=== PATIENT | female | born 1985 | race Caucasian/White ===

== ENCOUNTER 2016-08-10 08:49 | Emergency (ER) | payer MEDICARE ==
[2016-08-10 09:31] LABS: BASOPHILS 0.5 % (0.0-2.0); EOSINOPHILS 2.4 % (0-7); HEMATOCRIT 39.6 % (36.0-48.0); HEMOGLOBIN 13.4 g/dL (12-16); IMMATURE GRANULOCYTES 0.2 % (0-5); LYMPHOCYTES 31.8 % (15-50); MCH 29.7 pg (26.0-34.0); MCHC 33.8 g/dL (31.0-37.0); MCV 87.8 fL (80.0-100.0); MONOCYTES 8.4 % (2-11); NEUTROPHILS 56.7 % (40-80); PLATELET COUNT 389 10x3/uL (130-400); RBC 4.51 10x6/uL (4.00-5.40); RDW 12.6 % (11.5-14.5); WBC 5.7 10x3/uL (4.8-10.8)
[2016-08-10 09:43] LABS: ALBUMIN 3.8 g/dL (3.4-5.0); ANION GAP 15.3 mmol/L (8-16); BILIRUBIN - TOTAL 0.61 mg/dL (0.2-1.3); CALCIUM 9.3 mg/dL (8.5-10.1); CARBON DIOXIDE 22.6 mmol/L (21.0-32.0); CREATININE - SERUM 1.1 mg/dL (0.6-1.3); MAGNESIUM - SERUM 1.7 mg/dL (1.8-2.4); PROTEIN - SERUM 7.2 g/dL (6.4-8.2)
[2016-08-10 09:44] LABS: POTASSIUM - SERUM 2.9 mmol/L (3.5-5.1)
[2016-08-10 09:45] LABS: HCG URINE NEGATIVE (NEGATIVE)
[2016-08-10 09:46] LABS: APPEARANCE CLEAR (CLEAR); BILIRUBIN NEGATIVE (NEGATIVE); COLOR YELLOW (YELLOW); GLUCOSE NEGATIVE (NEGATIVE); KETONE NEGATIVE (NEGATIVE); LEUKOCYTE ESTERASE NEGATIVE (NEGATIVE); NITRITE NEGATIVE (NEGATIVE); PROTEIN NEGATIVE (NEGATIVE); UROBILINOGEN NORMAL (NORMAL)
[2016-08-10 09:48] LABS: BACTERIA FEW /hpf (NONE SEEN); EPITHELIAL CELLS 0-5 /hpf (0-5); WHITE CELLS - URINE 0-5 /hpf (0-5)
[2016-08-10 09:59] LABS: UDS - AMPHET NEGATIVE QUAL (NEGATIVE); UDS - BARB NEGATIVE QUAL (NEGATIVE); UDS - BENZO NEGATIVE QUAL (NEGATIVE); UDS - COCAINE NEGATIVE QUAL (NEGATIVE); UDS - METH NEGATIVE QUAL (NEGATIVE); UDS - OPIATE NEGATIVE QUAL (NEGATIVE); UDS - PCP NEGATIVE QUAL (NEGATIVE); UDS - THC NEGATIVE QUAL (NEGATIVE)
[2016-10-10 11:10] VITALS: BMI 54.7
== END 2016-08-10 10:54 | disposition home or self-care (01) ==
LOC: D.ER 08:49
PROVIDERS: Emergency Medicine
DX: R00.2 Palpitations (principal); E87.6 Hypokalemia; E83.42 Hypomagnesemia; F41.9 Anxiety disorder, unspecified

== ENCOUNTER 2016-08-11 01:25 | Emergency (ER) | payer MEDICARE ==
[2016-10-10 11:10] VITALS: BMI 54.7
== END 2016-08-11 02:31 | disposition home or self-care (01) ==
LOC: D.ER 01:25
DX: F41.9 Anxiety disorder, unspecified (principal); G47.00 Insomnia, unspecified; E87.6 Hypokalemia; E83.42 Hypomagnesemia

== ENCOUNTER 2016-10-10 10:27 | Outpatient (CLI) | payer MEDICARE ==
[~2016-10-10] VITALS: Ht 167.6 cm; Wt 127.3 kg
--- NOTE | ~2016-10-10 | HEMODYNAMI ---
PATIENT:WILBERT PHILLIP MEDICAL RECORD: [id number] : 83 LOCATION:[facility] ADMISSION DATE: 10/10/16 Generatedon:10/10/201613:23 Patient name: WILBERT PHILLIP Patient #: [id number] SSN: D OB: 1985 Date of study: 10/10/2016 Page: Of Hemodynamic Procedure Report Patient Data Patient Demographics Procedure consent was obtained First Name: WILBERT Gender: Female Last Name: MARJAN : 1985 Middle Initial: ANA Age: 30 year(s) Patient #: [id number] Race: Additional ID: [id number] Contact details Address: [address] [place] [address] [address] State: [place] City: [facility] Zip code: [address] Past Medical History Allergies Allergen Reaction Date Comments Reported Other allergy 10/10/2016 augmentin,Cymbalta, Propranolol Admission Admission Data Admission Date: 10/10/2016 Admission Time: 10:27 Admit Source: Other Insurance Payor: Medicare, Medicaid Height (in.): 66 BSA: 2.29 (m2) Height (cm.): 167.64 BMI: 44.55 (kg/m2) Weight (lbs.): 276 Weight (kg.): 125.19 Lab Results Lab Result Date: 10/10/2016 Lab Result Time: 11:00 Biochemistry Name Units Result Min Max BUN mg/dl 6 -*(----)-- 7 18 Creatinine mg/dl 0.9 --(-*--)-- 0.6 1.3 CBC Name Units Result Min Max Hematocrit % 40.2 -*(----)-- 42 54 Hemoglobin g/dl 13 -*(----)-- 13.5 17.5 Procedure Procedure Types Cath Procedure Diagnostic Procedure LHC LHC w/Coronaries Miscellaneous Procedures Moderate Sedation up to 15 minutes Procedure Description Procedure Date Procedure Date: 10/10/2016 Procedure Start Time: 13:06 Procedure End Time: 13:17 Procedure Staff Name Function Candelario Jimenez MD Performing Physician Mikki Dickinson RT Scrub Neo Poole RN Nurse Quan Reynolds RT Monitor Procedure Data Cath Procedure Fluoroscopy Diagnostic fluoroscopy Total fluoroscopy Time: 2.4 time: 2.4 min min Diagnostic fluoroscopy Total fluoroscopy dose: 601 dose: 601 mGy mGy Contrast Material Contrast Material Type Amount (ml) Isovue 300 82 Entry Location Entry Primary Successful Side Size Upsize Upsize Entry Closure Succes sful Closure Location (Fr) 1 (Fr) 2 (Fr) Remarks Device Remarks Femoral Right 5 Fr Exoseal artery Estimated blood loss: 5 ml Diagnostic catheters Device Type Used For End Catheter Placement Cordis 5Fr JL 4.0 Procedure Catheter (MP) Diagnostic Infinity 5Fr Procedure JL 3.5 catheter Cordis 5Fr Pigtail Procedure Catheter (MP) Cordis 5Fr 3DRC Catheter Procedure (MP) Procedure Complications No complications Procedure Medications Medication Administration Route Dosage Oxygen NC 2 l/min Heparin Flush Bag added to field 2 bags (1000units/500ml NS) 0.9% NaCl I.V. 100 ml/hr Fentanyl I.V. 100 mcg Versed I.V. 2 mg Fentanyl I.V. 100 mcg Versed I.V. 2 mg Fentanyl I.V. 100 mcg Versed I.V. 2 mg Fentanyl I.V. 50 mcg Versed I.V. 1 mg Fentanyl I.V. 50 mcg Versed I.V. 1 mg Hemodynamics Rest BSA: 2.29 (m2) HGB: 13 (g/dl) O2 Consumption: Estimated: 262.48 (ml/min) O2 Cons umption indexed: Estimated:114.62 (ml/min/m) Heart Rate: 93 (bpm) Pressure Samples Time Site Value (mmHg) Purpose Heart Use Rate(bpm) 13:12 LV 105/25,25 Snapshot 94 13:12 LV 105/25,25 Snapshot 93 Gradients Valve Time Site Site Mean SEP/DFP Peak To Heart Use 1 2 (mmHg) (sec/min) Peak Rate (mmHg) (bpm) Aortic 13:13 LV AO 96 Snapshots Pre Cath Intra NCS Post Cath Vital Signs Time Heart Resp SPO2 NIBP Rhythm Pain Sedation Rate (ipm) (%) (mmHg) Status Level (bpm) 12:49:48 92 20 96 122/79(99) NSR 0 (11) 10(A) , No pain 12:54:00 95 20 97 113/80(99) NSR 0 (11) 10(A) , No pain 12:58:12 99 20 98 116/77(94) NSR 0 (11) 10(A) , No pain 13:02:24 94 18 98 116/76(93) NSR 0 (11) 10(A) , No pain 13:06:34 98 17 96 114/78(89) NSR 0 (11) 10(A) , No pain 13:10:46 102 18 97 113/74(87) NSR 0 (11) 9(A) , No pain 13:15:00 102 17 96 111/72(85) NSR 0 (11) 9(A) , No pain 13:22:26 104 17 96 113/77(92) NSR 0 (11) 9(A) , No pain Medications Time Medication Route Dose Verified Delivered Reason Notes Effec tiveness by by 12:49:23 Oxygen NC 2 Neo Neo Per l/min Virgilio Poole RN physician RN 12:49:31 Heparin Flush added 2 Neo Neo used for Bag to bags Virgilio Poole RN procedure (1000units/500ml field RN NS) 12:49:43 0.9% NaCl I.V. 100 Neo Neo Per ml/hr Virgilio Poole RN physician RN 13:02:11 Fentanyl I.V. 100 Neo Neo for abi Poole RN sedation RN 13:02:18 Versed I.V. 2 mg Neo Neo for Virgilio Poole RN sedation RN 13:05:27 Fentanyl I.V. 100 Neo Neo [place] [facility] [place] Virgilio Poole RN sedation RN 13:05:30 Versed I.V. 2 mg Neo Neo for Virgilio Poole RN sedation RN 13:06:35 Fentanyl I.V. 100 Neo Neo for abi Poole RN sedation RN 13:06:39 Versed I.V. 2 mg Neo Neo for Virgilio Poole RN sedation RN 13:08:27 Fentanyl I.V. 50 Neo Neo for [facility] [place] Virgilio Poole RN sedation RN 13:08:38 Versed I.V. 1 mg Neo Neo for Virgilio Poole RN sedation RN 13:10:39 Fentanyl I.V. 50 Neo Larson for [facility] [place] Virgilio Poole RN sedation RN 13:10:41 Versed I.V. 1 mg Neo Larson for Virgilio Poole RN sedation tape coater Log Time Note 12:23:37 Neo Poole RN sent for patient. Start room use. 12:33:11 Informed consent obtained and on chart 12:33:33 ACC Patient presents with Stable Angina CCS Anginal Class 2--Slight limitation of ordinary activity. 12:33:35 Diagnostic Cath status Elective 12:33:38 Time tracking: Regular hours 12:33:41 Plan of Care:Hemodynamics will remain stable., Cardiac rhythm will remain stable., Comfort level will be maintained., Respiratory function will remain adequate., Patient/ family verbilizes understanding of procedure., Procedure tolerated without complication., Recovers from procedure without complications.. 12:35:14 H&P Date Dictated: 09/12/2016 Within 30 days and on chart., H&P Addendum completed by physician on day of procedure. (MUST COMPLETE FOR ALL OUTPATIENTS). 12:36:31 Patient allergic to Other allergyaugmentin,Cymbalta, Propranolol 12:36:36 Admit Source: Other 12:36:47 Patient Height : 167.64 cm 12:36:59 Patient Weight : 125.19 kg 12:36:59 Insurance Payor : Medicare, Medicaid 12:37:56 Lab Result : Hemoglobin 13 g/dl 12:37:56 Lab Result : Hematocrit 40.2 % 12:37:56 Lab Result : BUN 6 mg/dl 12:37:56 Lab Result : Creatinine 0.9 mg/dl 12:38:09 Lab results completed and on chart. 12:38:31 HCG/Urine : completed and on chart, negative 12:44:18 Patient received from Pre/Post Procedure Room to [facility] 2 Alert and oriented. Tansferred to table in Supine position. 12:44:19 Warm blankets applied, and esa hugger turned on for patient comfort. 12:44:19 Correct patient and procedure confirmed by team. 12:44:20 ECG and BP/O2 sat monitors applied to patient. 12:44:21 Full Disclosure recording started 12:48:42 Vital chart was started 12:49:23 Oxygen 2 l/min NC was administered by Neo Poole RN; Per physician; 12:49:31 Heparin Flush Bag (1000units/500ml NS) 2 bags added to field was administered by Neo Poole RN; used for procedure; 12:49:43 0.9% NaCl 100 ml/hr I.V. was administered by Neo Poole RN; Per physician; 12:55:53 Baseline sample Acquired. 12:55:59 Rhythm: sinus rhythm 12:56:04 Pre-procedure instructions explained to patient. 12:56:34 Pre-op teaching completed and patient verbalized understanding. 12:56:39 Family in waiting room. 12:56:40 Patient NPO since Midnight. 12:56:42 Is the patient allergic to Iodine/contrast media? No. 12:56:44 Is patient on blood thinner?No 12:56:47 Patient diabetic? No. 12:56:51 Previous problem with sedation/anesthesia? No ? 12:56:52 Snore? Yes 12:56:53 Sleep apnea? No 12:56:54 Deviated septum? No 12:56:55 Opens mouth fully? Yes 12:56:56 Sticks out tongue? Yes 12:56:57 Airway obstruction? No ? 12:56:59 Dentures? No ? 12:57:04 Pre procedure: right dorsailis pedis pulse 2+ Normal; easily identifiable; not easily obliterated 12:57:07 Patient pain scale 0/10 ?. 12:57:12 IV patent on arrival in left hand with 0.9% NaCl at O. 12:57:18 Right groin area was prepped with chlora-prep and draped in sterile fashion 12:57:19 Alarms reviewed by R. N. 12:57:19 Sharps counted by scrub and verified by R.N. 12:57:21 Use device set Femoral Dx 12:57:23 Tegaderm 4 x 4 opened to sterile field. 12:57:24 Acist Manifold opened to sterile field. 12:57:24 Acist Hand Control opened to sterile field. 12:57:25 Acist Syringe opened to sterile field. 12:57:26 Bag Decanter opened to sterile field. 12:57:27 Medline Cath Pack opened to sterile field. 12:57:28 Terumo 5Fr Coin Sheath opened to sterile field. 12:57:28 St Ari 260cm J .035 wire opened to sterile field. 12:57:29 Diagnostic Infinity 5Fr Multipack catheter opened to sterile field. 13::44 Physician arrived 13::44 --------ALL STOP TIME OUT------ 13:01:45 Final Timeout: patient, procedure, and site verified with staff and physician. All members of the team are in agreement. 13:01:47 Right groin site verified by team. 13:01:56 Physical assessment completed. ASA score P 2 - A patient with mild systemic disease as per Candelario Jimenez MD. 13:02:00 Sedation plan: IV Moderate Sedation Versed, Fentanyl 13:02:11 Fentanyl 100 mcg I.V. was administered by Neo Poole RN; for sedation; 13:02:18 Versed 2 mg I.V. was administered by Neo Poole RN; for sedation; 13:05:27 Fentanyl 100 mcg I.V. was administered by Neo Poole RN; for sedation; 13:05:30 Versed 2 mg I.V. was administered by Neo Poole RN; for sedation; 13:06:32 Zero performed for pressure channel P1 13:06:35 Fentanyl 100 mcg I.V. was administered by Neo Poole RN; for sedation; 13:06:38 Zero performed for pressure channel P1 13:06:39 Versed 2 mg I.V. was administered by Neo Poole RN; for sedation; 13:06:55 Procedure started. 13:06:57 Local anesthetic to right femoral artery with Lidocaine 2% by Candelario Jimenez MD.INITIAL ACCESS ONLY 13:07:06 A 5 Fr sheath was inserted into the Right Femoral artery 13:07:44 A Cordis 5Fr JL 4.0 Catheter () was advanced over the wire and used for Procedure. 13:08:02 LCA angiography performed. 13:08:27 Fentanyl 50 mcg I.V. was administered by Neo Poole RN; for sedation; 13:08:38 Versed 1 mg I.V. was administered by Neo oPole RN; for sedation; 13:09:28 Catheter removed. 13:09:51 A Diagnostic Infinity 5Fr JL 3.5 catheter was advanced over the wire and used for Procedure. 13:10:39 Fentanyl 50 mcg I.V. was administered by Neo Poole RN; for sedation; 13:10:41 Versed 1 mg I.V. was administered by Neo Poole RN; for sedation; 13:11:14 LCA angiography performed. 13:11:15 Catheter removed. 13:12:12 A Cordis 5Fr Pigtail Catheter (MP) was advanced over the wire and used for Procedure. 13:12:16 LV hemodynamics recorded. 13:12:49 LV gram done using LUNA 13:12:51 Injector settings: Ml/sec: 5, Volume: 15, 13:12:58 EF : 55 % 13:13:10 Catheter removed. 13:13:18 A Cordis 5Fr 3DRC Catheter (MP) was advanced over the wire and used for Procedure. 13:14:13 RCA angiography performed. 13:14:16 ACCDominant side:Left 13:14:20 Catheter removed. 13:14:29 Cordis 5Fr Exoseal opened to sterile field. 13:14:40 Sheath removed intact; hemostasis achieved with Exoseal to the Right Femoral artery. 13:14:42 Procedure ended.(Physican Out) 13:15:21 Fluoroscopy time 02.40 minutes. 13:15:25 Flurop Dose total: 601 13:15:26 Fluoroscopy dose: 601 mGy 13:15:56 Contrast amount:Isovue 300 82ml. 13:15:57 Sharps counted by scrub and verified by R.N. 13:15:58 Insertion/operative site no bleeding no hematoma. 13:16:01 Post-op/insertion site Right Femoral artery dressed using a 4 x 4 and Tegaderm. 13:16:06 Post right femoral artery:stable, soft, clean and dry 13:16:29 Post Procedure Pulses reassessed and unchanged 13:16:33 Post-procedure physical assessment completed. ASA score P 2 - A patient with mild systemic disease as per Candelario Jimenez MD. 13:16:58 Post procedure rhythm: unchanged. 13:17:00 Estimated blood loss: 5 ml 13:17:01 Post procedure instruction explained to patient.Patient verbalizes understanding. 13:17:02 Patient needs reinforcement of post procedure teaching. 13:17:13 Procedure type changed to Cath procedure, Diagnostic procedure, LHC, LHC w/Coronaries, Miscellaneous Procedures, Moderate Sedation up to 15 minutes 13:17:44 Procedure and supply charges have been captured, reviewed, submitted and are correct. 13:17:46 Procedure Complication : No complications 13:17:49 Vital chart was stopped 13:17:50 See physician's report for complete and final results. 13:17:51 Report given to Pre/Post Procedure Room. 13:17:54 Patient transfered to Pre/Post Procedure Room with Stretcher. 13:17:56 Procedure ended. 13:17:56 Full Disclosure recording stopped 13:19:32 End room use (Document Last) Device Usage Item Name Manufacture Quantity Catalog Hospital Part Current Minimal Lo t# / Number Charge Number Stock Stock Serial# Code Tegaderm 4 3M 1 1626W 606300 [id number] 901592 5 x 4 Acist Acist 1 84618 229424 757615 125783 5 Manifold Medical Systems Location Acist Hand Acist 1 65789 964753 213912 480211 5 Control Medical Systems Inc Acist Acist 1 98063 403585 302916 764609 20 Syringe Medical Systems Inc Bag Microtek 1 2002S 246961 84144 100309 5 [employer]. Medline Cardinal 1 [id number] 817024 01325 555621 5 Cath Pack Health Terumo 5Fr Terumo 1 [id number] 727109 106439 351196 [address] Ari 1 408275 365229 442425 389726 30 260cm J .035 wire Diagnostic Cardinal 1 [id number] 093707 32955 957915 30 Infinity Health 5Fr Multipack catheter Cordis 5Fr Cardinal 1 830477 5 JL 4.0 Health Catheter (MP) Diagnostic Cardinal 1 [id number] 102835 907527 259383 5 Infinity Health 5Fr JL 3.5 catheter Cordis 5Fr Cardinal 1 313425 5 Pigtail Health Catheter (MP) Cordis 5Fr Cardinal 1 634615 5 3DRC Health Catheter (MP) Cordis 5Fr Cardinal 1 EX500 940091 135705 126003 10 [employer] Signature Audit Franklin Stage Time Signature Unsigned Intra-Procedure 10/10/2016 Quan Reynolds 1:23:20 PM RT(R) Signatures Monitor : Quan Reynolds RT Signature : Date : Time : [place] [address] [place] [address]
[2016-10-10 11:10] VITALS: BP 115/80; Ht 167.6 cm; Wt 127.3 kg
[2016-10-10] MEDS ORDERED: LATUDA40 MG PO (11:25)
[2016-10-10] MEDS ORDERED: ZOLOFT100 MG PO (11:25)
[2016-10-10] MEDS ORDERED: ELAVIL75 MG PO (11:25)
[2016-10-10 11:42] LABS: BASOPHILS 0.7 % (0.0-2.0); EOSINOPHILS 2.9 % (0-7); HEMATOCRIT 40.2 % (36.0-48.0); IMMATURE GRANULOCYTES 0.2 % (0-5); LYMPHOCYTES 36.4 % (15-50); MCHC 32.3 g/dL (31.0-37.0); MCV 92.8 fL (80.0-100.0); MEAN PLATELET VOLUME 8.7 fL (7.4-10.4); MONOCYTES 12.4 % (2-11); NEUTROPHILS 47.4 % (40-80); PLATELET COUNT 342 10x3/uL (130-400); RBC 4.33 10x6/uL (4.00-5.40); WBC 4.2 10x3/uL (4.8-10.8)
[2016-10-10 11:52] LABS: CALC OSMOLALITY 277 mosm/kg (275-300); CALCIUM 8.2 mg/dL (8.5-10.1); CARBON DIOXIDE 26.9 mmol/L (21.0-32.0); CHLORIDE - SERUM 106 mmol/L (98-107); CREATININE - SERUM 0.9 mg/dL (0.6-1.3); GLUCOSE 87 mg/dL (74-106); POTASSIUM - SERUM 3.6 mmol/L (3.5-5.1); SODIUM 141 mmol/L (136-145); UREA NITROGEN 6 mg/dL (7-18); eGFR NON AFRICAN AMERICAN 77 mL/min (90-120)
[2016-10-10 11:53] LABS: HCG SERUM NEGATIVE (NEGATIVE)
--- NOTE | 2016-10-10 14:30 | NUR ---
1350 LYING FLAT, ROOM AIR WITH NO RESP DISTRESS. NSR RATE 86 W NO C/O CHEST PAIN. PULSES PALP X 4. R GROIN 5F EXOSEAL C/D/I WITH NO HEMATOMA OR BLEEDING.
--- NOTE | 2016-10-10 15:07 | NUR ---
HOB ELEVATED 30 DEGREES. LEFT HAND PIV D/C'D WITH CATHETER INTACT. BAND AID TO SITE.
--- NOTE | 2016-10-10 15:21 | NUR ---
UP TO BEDSIDE TO DRESS, AMBULATED TO BATHROOM TO VOID. R GROIN REMAINS C/D/I WITH NO HEMATOMA OR BLEEDING. D/C INSTRUCTIONS DISCUSSED WITH PATIENT AND FAMILY AT BEDSIDE.
--- NOTE | 2016-10-10 15:36 | NUR ---
WHEELED OUT VIA WHEELCHAIR BY CATH STAFF.
--- NOTE | 2016-10-13 09:45 | OP ---
PATIENT NAME: WILBERT PHILLIP MEDICAL RECORD: [id number] :83 LOCATION:D.CAT ADMISSION DATE: SURGEON: OLAYINKA DOWD MD DATE OF OPERATION: 10/10/2016 PROCEDURE: Left heart catheterization, selective coronary angiography, and right femoral artery approach. CATHETERS: A 5-Mauritanian sheath, 5/4 left and right Tucker, 5/4 pig. The procedure was well tolerated and the patient returned to the casas. Sheath removed. ExoSeal device placed. FINDINGS: Left ventriculography in 30-degree LUNA view: Normal wall motion and normal systolic function. CORONARY ANATOMY: Left main: Left main is free of disease. LAD: Free of disease in the diagonal system. CIRCUMFLEX: Free of disease in the marginal system. RIGHT CORONARY ARTERY: Dominant artery, gives rise to PDA, free of disease. IMPRESSION: Normal systolic function. Normal coronary anatomy. TRANSINT:[id number] Voice Confirmation ID: [id number] DOCUMENT ID: [id number] OLAYINKA DOWD MD at 0945 CC: [id number] DICTATION DATE: 10/10/16 1319 PLANT TECHNICAL SPECIALIST: 10/10/16 2223 DEP CLI 10/10/16 [place] [id number] [place] [address]
== END 2016-10-10 15:37 | disposition home or self-care (01) ==
LOC: D.CATH 10:27
PROVIDERS: Internal Medicine Interventional Cardiology
DX: I20.9 Angina pectoris, unspecified (principal); R06.02 Shortness of breath; R94.30 Abnormal result of cardiovascular function study, unspecified; F41.9 Anxiety disorder, unspecified; R00.2 Palpitations

== ENCOUNTER 2016-11-09 14:46 | Emergency (ER) | payer MEDICARE ==
[2016-10-10 11:10] VITALS: BMI 54.7
[~2016-11-09 14:46] MED LIST: ELAVIL75 MG PO; LATUDA40 MG PO; ZOLOFT100 MG PO
[2016-11-09 15:56] LABS: BASOPHILS 0.1 % (0.0-2.0); EOSINOPHILS 0.3 % (0-7); HEMOGLOBIN 13.1 g/dL (12-16); IMMATURE GRANULOCYTES 0.2 % (0-5); LYMPHOCYTES 9.9 % (15-50); MCH 30.4 pg (26.0-34.0); MCHC 33.6 g/dL (31.0-37.0); MCV 90.5 fL (80.0-100.0); MEAN PLATELET VOLUME 8.9 fL (7.4-10.4); MONOCYTES 4.7 % (2-11); NEUTROPHILS 84.8 % (40-80); PLATELET COUNT 355 10x3/uL (130-400); RBC 4.31 10x6/uL (4.00-5.40); RDW 12.6 % (11.5-14.5)
[2016-11-09 16:10] LABS: ALBUMIN 3.5 g/dL (3.4-5.0); ALKALINE PHOSPHATASE 46 U/L (46-116); ALT (SGPT) 19 U/L (10-68); BILIRUBIN - TOTAL 0.29 mg/dL (0.2-1.3); CALC OSMOLALITY 278 mosm/kg (275-300); CALCIUM 8.3 mg/dL (8.5-10.1); CARBON DIOXIDE 22.6 mmol/L (21.0-32.0); CHLORIDE - SERUM 106 mmol/L (98-107); CREATININE - SERUM 0.9 mg/dL (0.6-1.3); GLUCOSE 102 mg/dL (74-106); POTASSIUM - SERUM 3.6 mmol/L (3.5-5.1); PROTEIN - SERUM 7.3 g/dL (6.4-8.2); SODIUM 141 mmol/L (136-145); UREA NITROGEN 8 mg/dL (7-18); eGFR NON AFRICAN AMERICAN 77 mL/min (90-120)
== END 2016-11-09 17:19 | disposition home or self-care (01) ==
LOC: D.ER 14:46
PROVIDERS: Emergency Medicine
DX: J02.9 Acute pharyngitis, unspecified (principal); F41.9 Anxiety disorder, unspecified; E87.6 Hypokalemia; E83.42 Hypomagnesemia; G47.00 Insomnia, unspecified

== ENCOUNTER 2017-10-11 00:54 | Emergency (ER) | payer MEDICARE ==
[2016-10-10 11:10] VITALS: BMI 54.7
[2017-10-11 01:31] LABS: BASOPHILS 0.6 % (0-2); EOSINOPHILS 1.9 % (0-7); HEMATOCRIT 37.6 % (36.0-48.0); HEMOGLOBIN 12.6 g/dL (12-16); IMMATURE GRANULOCYTES 0.1 % (0-5); LYMPHOCYTES 28.4 % (15-50); MCH 30.1 pg (26.0-34.0); MCHC 33.5 g/dL (31.0-37.0); MEAN PLATELET VOLUME 9.1 fL (7.4-10.4); MONOCYTES 6.5 % (2-11); NEUTROPHILS 62.5 % (40-80); PLATELET COUNT 354 10x3/uL (130-400); RBC 4.18 10x6/uL (4.00-5.40); RDW 12.2 % (11.5-14.5); WBC 6.8 10x3/uL (4.8-10.8)
[2017-10-11 01:41] LABS: HCG SERUM NEGATIVE (NEGATIVE)
[2017-10-11 01:48] LABS: ALBUMIN 3.3 g/dL (3.4-5.0); ANION GAP 14.9 mmol/L (8-16); BILIRUBIN - TOTAL 0.38 mg/dL (0.2-1.3); CALCIUM 8.9 mg/dL (8.5-10.1); CARBON DIOXIDE 20.9 mmol/L (21.0-32.0); CREATININE - SERUM 1.3 mg/dL (0.6-1.3)
[2017-10-11 01:55] LABS: POTASSIUM - SERUM 2.8 mmol/L (3.5-5.1)
[2017-10-11 02:09] LABS: APPEARANCE CLEAR (CLEAR); BILIRUBIN NEGATIVE (NEGATIVE); COLOR YELLOW (YELLOW); GLUCOSE NEGATIVE (NEGATIVE); KETONE NEGATIVE (NEGATIVE); NITRITE NEGATIVE (NEGATIVE); PROTEIN NEGATIVE (NEGATIVE); SPECIFIC GRAVITY 1.005 (1.005-1.020); UROBILINOGEN NORMAL (NORMAL)
== END 2017-10-11 05:15 | disposition home or self-care (01) ==
LOC: D.ER 00:54
PROVIDERS: Family Medicine
DX: R10.9 Unspecified abdominal pain (principal); E87.6 Hypokalemia

== ENCOUNTER 2017-11-22 02:23 | Emergency (ER) | payer MEDICARE ==
[2016-10-10 11:10] VITALS: BMI 54.7
[2017-11-22 03:07] LABS: ALBUMIN 3.2 g/dL (3.4-5.0); ANION GAP 14.5 mmol/L (8-16); BILIRUBIN - TOTAL 0.47 mg/dL (0.2-1.3); CALCIUM 8.5 mg/dL (8.5-10.1); CARBON DIOXIDE 22.7 mmol/L (21.0-32.0); CREATININE - SERUM 1.1 mg/dL (0.6-1.3); POTASSIUM - SERUM 3.2 mmol/L (3.5-5.1); PROTEIN - SERUM 6.8 g/dL (6.4-8.2)
[2017-11-22 03:10] LABS: APPEARANCE CLEAR (CLEAR); BILIRUBIN NEGATIVE (NEGATIVE); COLOR YELLOW (YELLOW); GLUCOSE NEGATIVE (NEGATIVE); KETONE NEGATIVE (NEGATIVE); NITRITE NEGATIVE (NEGATIVE); PROTEIN NEGATIVE (NEGATIVE); SPECIFIC GRAVITY 1.015 (1.005-1.020); UROBILINOGEN NORMAL (NORMAL)
[2017-11-22 03:11] LABS: BASOPHILS 0.5 % (0-2); EOSINOPHILS 1.7 % (0-7); HEMATOCRIT 36.3 % (36.0-48.0); HEMOGLOBIN 12.5 g/dL (12-16); IMMATURE GRANULOCYTES 0.2 % (0-5); LYMPHOCYTES 34.1 % (15-50); MCH 30.6 pg (26.0-34.0); MCHC 34.4 g/dL (31.0-37.0); MEAN PLATELET VOLUME 9.4 fL (7.4-10.4); MONOCYTES 6.7 % (2-11); NEUTROPHILS 56.8 % (40-80); PLATELET COUNT 311 10x3/uL (130-400); RBC 4.08 10x6/uL (4.00-5.40); RDW 12.4 % (11.5-14.5)
== END 2017-11-22 04:05 | disposition home or self-care (01) ==
LOC: D.ER 02:23
PROVIDERS: Emergency Medicine
DX: R06.00 Dyspnea, unspecified (principal); J44.1 Chronic obstructive pulmonary disease with (acute) exacerbation; J18.9 Pneumonia, unspecified organism; F17.200 Nicotine dependence, unspecified, uncomplicated

== ENCOUNTER → 2017-11-22 06:55 | Outpatient (CLI) | payer MEDICARE ==
[2016-10-10 11:10] VITALS: BMI 54.7
[2017-11-22 08:25] LABS: ALBUMIN 3.3 g/dL (3.4-5.0); BILIRUBIN - DIRECT 0.22 mg/dL (0.00-0.30); BILIRUBIN - INDIRECT 0.23 mg/dL (0.00-1.00); BILIRUBIN - TOTAL 0.45 mg/dL (0.2-1.3); PROTEIN - SERUM 6.5 g/dL (6.4-8.2)
== END | disposition home or self-care (01) ==
LOC: D.US 06:55 → D.NM 08:30
PROVIDERS: Internal Medicine Gastroenterology
DX: R63.4 Abnormal weight loss (principal); R10.9 Unspecified abdominal pain

== ENCOUNTER 2017-12-27 07:30 | Day surgery (SDC) | payer MEDICARE ==
[2017-12-26 10:13] LABS: HEMATOCRIT 38.4 % (36.0-48.0); HEMOGLOBIN 13.1 g/dL (12-16); MCHC 34.1 g/dL (31.0-37.0); MCV 90.8 fL (80.0-100.0); MEAN PLATELET VOLUME 9.3 fL (7.4-10.4); RBC 4.23 10x6/uL (4.00-5.40); RDW 12.5 % (11.5-14.5); WBC 5.2 10x3/uL (4.8-10.8)
[~2017-12-27] VITALS: Ht 170.2 cm; Wt 113.4 kg
--- NOTE | ~2017-12-27 | OP ---
PATIENT NAME: WILBERT PHILLIP MEDICAL RECORD: [id number] :[birth year] LOCATION:D.OPS ADMISSION DATE: SURGEON: CONSUELO ALMODOVAR MD DATE OF OPERATION: 12/27/2017 PREOPERATIVE DIAGNOSES: 1. Chronic cholecystitis. 2. Akinetic gallbladder. POSTOPERATIVE DIAGNOSES: 1. Chronic cholecystitis. 2. Akinetic gallbladder with hepatomegaly. PROCEDURE: 1. Laparoscopic cholecystectomy. 2. Intraoperative cholangiography without immediate surgeon interpretation. 3. 14-gauge core needle liver biopsies. SURGEON: Consuelo Almodovar MD TIME LOCK EXPERT: Candice Kemp APRN COMPLICATIONS: None. OPERATIVE COURSE: The patient was conveyed to the operating room electively on 12/27/2017. General anesthesia was induced by the anesthesia staff. The abdomen was sterilely prepped and draped. A small skin callum was accomplished in the left upper quadrant. A Veress needle was inserted through the skin callum into the peritoneal cavity. CO2 insufflation was begun. Once a sufficient pneumoperitoneum had been achieved, a 5-mm trocar was inserted through an incision in the right upper quadrant. Under direct internal vision utilizing a television camera, a 12-mm trocar was inserted through an incision at the umbilicus. Two more trocars were inserted. A 5-mm trocar was inserted in the epigastrium. Another 5-mm trocar was inserted far laterally in the right upper quadrant. During insertion of the Veress needle and all trocars, there appeared to have been no injury to the bowels, any intraperitoneal or retroperitoneal structures. The indication for the liver biopsy was hepatomegaly. Under laparoscopic guidance, I percutaneously accessed the right upper quadrant utilizing an 14-gauge core needle liver biopsy device. Cores were obtained over the convexity of the liver. The biopsy sites were made hemostatic with electrocautery. I then advanced the cholangiogram trocar. I punctured the fundus of the gallbladder. I aspirated bile. I then injected dye. Static fluoroscopic images were obtained. These cholangiographic images are sent to the radiologist for interpretation. I withdrew the cholangiogram trocar. The gallbladder was grasped and retracted cephalad. The infundibulum was grasped and retracted laterally. Critical view of the triangle of Calot was visualized. Blunt dissection was begun on the triangle of Calot. One cystic artery and one cystic duct were identified. These were clipped multiply and divided between clips. The gallbladder was then excised from its bed and the liver. It was placed within an Endobag retrieval device and was withdrawn through the umbilical OPERATIVE REPORT [id number] EVE PHILLIPAH ANA fascia defect. The 12-mm trocars were placed and the abdomen reinsufflated. I irrigated and aspirated in the right upper quadrant. There was no bleeding even at low pressure of 8. The Deniz-Leonie suture closure device and 0 Vicryl sutures were used to close the umbilical fascia. All the trocars were removed and the abdomen desufflated. The incision at the umbilicus was closed with interrupted 4-0 Vicryl Rapide sutures. The other skin incisions were closed with interrupted intracuticular 3-0 Vicryls. Benzoin and Steri-Strips were applied. The patient was then extubated and conveyed to post-anesthesia care unit where she was in stable condition. TRANSINT:[id number] Voice Confirmation ID: [id number] DOCUMENT ID: [id number] CONSUELO ALMODOVAR MD at 1126 CC: JOVANA BAEZ MD and AP PACK [id number] DICTATION DATE: 12/27/17 1209 HACKLER DOLL WIGS: 12/27/17 1234 [facility] 12/27/17 [address] [place] [address]
[2017-12-27 08:20] VITALS: BP 101/64; Ht 170.2 cm; Wt 113.4 kg
[2017-12-27 08:34] LABS: HCG URINE NEGATIVE (NEGATIVE)
== END 2017-12-27 17:45 ==
LOC: D.OPS 07:30 → D.PAN 09:30 → D.OPS 17:45
PROVIDERS: Anesthesiology; Surgery
DX: K81.1 Chronic cholecystitis (principal); Z01.812 Encounter for preprocedural laboratory examination

== ENCOUNTER 2018-05-03 16:51 | Emergency (ER) | payer MEDICARE ==
[~2018-05-03] VITALS: Ht 170.2 cm; Wt 100.0 kg
[2018-05-03 17:01] VITALS: Ht 170.2 cm; Wt 100.0 kg
[2018-05-03 17:35] LABS: BASOPHILS 0.7 % (0-2); EOSINOPHILS 1.9 % (0-7); HEMATOCRIT 39.9 % (36.0-48.0); HEMOGLOBIN 13.8 g/dL (12-16); LYMPHOCYTES 32.3 % (15-50); MCH 31.1 pg (26.0-34.0); MCHC 34.6 g/dL (31.0-37.0); MCV 89.9 fL (80.0-100.0); MEAN PLATELET VOLUME 9.5 fL (7.4-10.4); MONOCYTES 6.5 % (2-11); NEUTROPHILS 58.6 % (40-80); PLATELET COUNT 354 10x3/uL (130-400); RBC 4.44 10x6/uL (4.00-5.40); RDW 12.1 % (11.5-14.5); WBC 5.9 10x3/uL (4.8-10.8)
[2018-05-03 17:43] LABS: APPEARANCE CLEAR (CLEAR); BILIRUBIN NEGATIVE (NEGATIVE); COLOR YELLOW (YELLOW); GLUCOSE NEGATIVE (NEGATIVE); KETONE MODERATE mg/dL (NEGATIVE); NITRITE NEGATIVE (NEGATIVE); PROTEIN NEGATIVE (NEGATIVE); SPECIFIC GRAVITY 1.005 (1.005-1.020); UROBILINOGEN NORMAL (NORMAL)
[2018-05-03 17:48] LABS: HCG SERUM NEGATIVE (NEGATIVE)
[2018-05-03 17:53] LABS: ALBUMIN 3.8 g/dL (3.4-5.0); ANION GAP 16.6 mmol/L (8-16); BILIRUBIN - TOTAL 0.64 mg/dL (0.2-1.3); CALCIUM 9.4 mg/dL (8.5-10.1); CARBON DIOXIDE 22.8 mmol/L (21.0-32.0); CREATININE - SERUM 1.1 mg/dL (0.6-1.3); POTASSIUM - SERUM 3.4 mmol/L (3.5-5.1); PROTEIN - SERUM 7.5 g/dL (6.4-8.2)
[2018-05-03 17:55] LABS: UDS - AMPHET NEGATIVE QUAL (NEGATIVE); UDS - BARB NEGATIVE QUAL (NEGATIVE); UDS - BENZO NEGATIVE QUAL (NEGATIVE); UDS - COCAINE NEGATIVE QUAL (NEGATIVE); UDS - OPIATE NEGATIVE QUAL (NEGATIVE); UDS - PCP NEGATIVE QUAL (NEGATIVE); UDS - THC NEGATIVE QUAL (NEGATIVE)
[2018-05-03 18:03] LABS: THYROID STIMULATING HORMONE 1.18 uIU/mL (0.36-3.74)
[2018-05-03 20:33] VITALS: BP 122/68
== END 2018-05-03 21:45 | disposition other institution (70) ==
LOC: D.ER 16:51
PROVIDERS: Emergency Medicine
DX: F41.9 Anxiety disorder, unspecified (principal); F32.9 Major depressive disorder, single episode, unspecified; R45.851 Suicidal ideations; R53.1 Weakness; R42 Dizziness and giddiness

== ENCOUNTER 2018-05-23 04:08 | Emergency (ER) | payer MEDICARE ==
[~2018-05-23] VITALS: Ht 170.2 cm; Wt 106.8 kg
[2018-05-23 04:20] VITALS: Ht 170.2 cm; Wt 106.8 kg
[2018-05-23] MEDS ORDERED: INVEGA1.5 MG (04:29)
[2018-05-23] MEDS ORDERED: BUSPAR5 MG (04:30)
[2018-05-23] MEDS ORDERED: VISTARIL25 MG (04:30)
[2018-05-23 05:05] LABS: BASOPHILS 0.8 % (0-2); HEMOGLOBIN 12.6 g/dL (12-16); IMMATURE GRANULOCYTES 0.2 % (0-5); MCH 30.7 pg (26.0-34.0); MCHC 33.2 g/dL (31.0-37.0); MCV 92.7 fL (80.0-100.0); MEAN PLATELET VOLUME 9.1 fL (7.4-10.4); PLATELET COUNT 346 10x3/uL (130-400); RDW 12.8 % (11.5-14.5)
[2018-05-23 05:24] LABS: INR 0.92 (0.85-1.17)
[2018-05-23 05:38] LABS: ALBUMIN 3.3 g/dL (3.4-5.0); ALKALINE PHOSPHATASE 42 U/L (46-116); ALT (SGPT) 21 U/L (10-68); BILIRUBIN - TOTAL 0.15 mg/dL (0.2-1.3); CALC OSMOLALITY 280 mosm/kg (275-300); CALCIUM 8.9 mg/dL (8.5-10.1); CARBON DIOXIDE 27.6 mmol/L (21.0-32.0); CHLORIDE - SERUM 107 mmol/L (98-107); GLUCOSE 87 mg/dL (74-106); POTASSIUM - SERUM 3.4 mmol/L (3.5-5.1); PROTEIN - SERUM 6.7 g/dL (6.4-8.2); SODIUM 143 mmol/L (136-145); UREA NITROGEN 5 mg/dL (7-18); eGFR NON AFRICAN AMERICAN 68 mL/min (90-120)
[2018-05-23 05:55] LABS: CREATINE KINASE 54 UL (21-215)
[2018-05-23 05:58] LABS: TROPONIN-I < 0.017 ng/mL (0.000-0.060)
[2018-05-23 08:56] VITALS: BP 99/61
== END 2018-05-23 08:58 | disposition home or self-care (01) ==
LOC: D.ER 04:08
PROVIDERS: Family Medicine
DX: I95.9 Hypotension, unspecified (principal); E87.6 Hypokalemia; R00.2 Palpitations; R00.0 Tachycardia, unspecified

== ENCOUNTER → 2018-10-23 08:54 | Outpatient (CLI) | payer MEDICARE, MEDICAID ==
[2018-05-23 04:20] VITALS: BMI 36.9
[~2018-10-23 08:54] MED LIST changes: +BUSPAR5 MG; +INVEGA1.5 MG; +VISTARIL25 MG
--- NOTE | 2018-10-28 14:26 | EC ---
PATIENT:WILBERT PHILLIP DATE OF SERVICE: 10/23/18 SEX: F MEDICAL RECORD: [id number] DATE OF : [birth year] [facility] AGE OF PATIENT: 33 ADMISSION DATE: 10/23/18 REFERRING PHYSICIAN: INTERPRETING PHYSICIAN: OLAYINKA DOWD MD ECHOCARDIOGRAM REPORT ECHO CHARGES 4 ECHO COMPLETE Date: 10/23/18 CLINICAL DIAGNOSIS: PVC'S/PALPITATIONS/LVH ECHOCARDIOGRAPHIC MEASUREMENTS (adult normal given) AC root (d.<3.7cm) 3.0 cm LV Septum d (<1.2 cm> 1.1 cm Valve Excursion 2.1 cm LV Septum (systole) 1.2 cm Left Atria (s.<4.0cm> 4.4 cm LVPW d(<1.2cm) 1.3 cm RV (d.<2.3cm) 2.3 cm LVPW (sytole) 1.8 cm LV diastole(<5.6CM) 5.1 cm MV E-F(>70mm/sec) cm LV systole 3.6 cm LVOT Diameter 2.0 cm MV exc.(>10mm) cm Est.ejection fraction (50-75%) % DOPPLER: LVIT cm/sec A 49.0 cm/sec E 71.0 cm/sec LA cm/sec RVSP 22.3 mmHg LVOT 86.0 cm/sec AOP1/2T m/s Asc. Ao 96.0 cm/sec RVOT 48.0 cm/sec RA cm/sec PA 75.0 cm/sec AV Gradient Peak 3.7 mmHg AV Mean 1.8 mmHg AV Area 2.7 cm MV Gradient Peak 4.5 mmHg MV Mean 1.2 mmHg MV Area cm COMMENTS: OP - HC Sorter Upholstery Parts: 1 PO SCHAEFFEROE Galley Cook: 3 Dr. Jimenez TAPE# PACS Pericardial Effusion N DATE OF SERVICE: 10/23/2018 Adequate 2-D, color-flow and spectral Doppler, and M-mode. Borderline LVH. LV internal dimensions are normal. Wall motion is normal. EF is equal to 55%. Aortic valve is tricuspid. No evidence of stenosis by Doppler interrogation. Left atrium is dilated at 4.4 cm. Mitral valve shows no prolapse. Trace MR. Right-sided chambers are grossly normal. Trace TR. TRANSINT:[id number] Voice Confirmation ID: [id number] DOCUMENT ID: [id number] ECHOCARDIOGRAM REPORT [id number] WILBERT PHILLIP,OLAYINKA Cleaning MD at 1426 CC: [id number] DICTATION DATE: 10/23/18 1546 CARDIOVASCULAR SONOGRAPHER: 10/23/18 1706 DEP CLI 10/23/18 [place] [id number]
== END | disposition home or self-care (01) ==
LOC: D.HCCARDIO 08:54
PROVIDERS: ATTEND Internal Medicine Interventional Cardiology
DX: R00.2 Palpitations (principal)

== ENCOUNTER 2019-03-13 14:05 | Emergency (ER) | payer MEDICARE, MEDICAID ==
[~2019-03-13] VITALS: Ht 167.6 cm; Wt 113.6 kg
[2019-03-13 14:21] VITALS: Ht 167.6 cm; Wt 113.6 kg
[2019-03-13] MEDS ORDERED: ATIVAN1 MG PO (14:24)
[2019-03-13 15:25] LABS: BASOPHILS 0.6 % (0-2); EOSINOPHILS 1.5 % (0-7); HEMATOCRIT 38.3 % (36.0-48.0); HEMOGLOBIN 13.5 g/dL (12-16); IMMATURE GRANULOCYTES 0.1 % (0-5); LYMPHOCYTES 30.8 % (15-50); MCH 30.9 pg (26.0-34.0); MCHC 35.2 g/dL (31.0-37.0); MCV 87.6 fL (80.0-100.0); MEAN PLATELET VOLUME 9.5 fL (7.4-10.4); MONOCYTES 7.7 % (2-11); NEUTROPHILS 59.3 % (40-80); PLATELET COUNT 334 10x3/uL (130-400); RBC 4.37 10x6/uL (4.00-5.40); WBC 6.7 10x3/uL (4.8-10.8)
[2019-03-13 15:28] LABS: APPEARANCE CLEAR (CLEAR); BILIRUBIN NEGATIVE (NEGATIVE); COLOR YELLOW (YELLOW); GLUCOSE NEGATIVE (NEGATIVE); KETONE SMALL mg/dL (NEGATIVE); NITRITE NEGATIVE (NEGATIVE); PROTEIN NEGATIVE (NEGATIVE); UROBILINOGEN NORMAL (NORMAL)
[2019-03-13 15:40] LABS: ALBUMIN 3.7 g/dL (3.4-5.0); ANION GAP 14.9 mmol/L (8-16); BILIRUBIN - TOTAL 0.57 mg/dL (0.2-1.3); CALCIUM 9.2 mg/dL (8.5-10.1); CARBON DIOXIDE 23.3 mmol/L (21.0-32.0); CREATININE - SERUM 1.2 mg/dL (0.6-1.3); POTASSIUM - SERUM 3.2 mmol/L (3.5-5.1); PROTEIN - SERUM 7.3 g/dL (6.4-8.2)
[2019-03-13 18:50] VITALS: BP 110/77
== END 2019-03-13 18:51 | disposition home or self-care (01) ==
LOC: D.ER 14:05
PROVIDERS: Family Medicine
DX: T67.5XXA Heat exhaustion, unspecified, initial encounter (principal); X58.XXXA Exposure to other specified factors, initial encounter; Y93.89 Activity, other specified; Y92.89 Other specified places as the place of occurrence of the external cause; E87.6 Hypokalemia

== ENCOUNTER 2019-10-31 22:19 | Emergency (ER) | payer MEDICARE, MEDICAID ==
[~2019-10-31] VITALS: Ht 167.6 cm; Wt 111.4 kg
[~2019-10-31 22:19] MED LIST changes: +ATIVAN1 MG PO
[2019-10-31 22:23] VITALS: BP 102/72; Ht 167.6 cm; Wt 111.4 kg
--- NOTE | 2019-10-31 23:31 | NUR ---
DR DALTON NOTIFIED WITH PATIENT'S BEHAVIOR AND ASSESSMENT FINDINGS. PT IS AT LOW RISK FOR SELF HARM PER DR DALTON. DR DALTON ORDERED TO GIVE PATIENT RESOURCE SHEET AT TIME OF DISCHARGE. RESOURCE SHEET COVERED WITH PATIENT AND SHE VERBALIZED UNDERSTABDING.
== END 2019-10-31 23:39 | disposition home or self-care (01) ==
LOC: D.ER 22:19
DX: T75.89XA Other specified effects of external causes, initial encounter (principal)